=== PATIENT | female | born 1955 | race Caucasian/White ===

== ENCOUNTER → 2020-02-04 | Outpatient (CLI) | payer BC ==
--- NOTE | 2020-02-04 15:34 | US ---
EXAMINATION TYPE: US venous doppler duplex LE LT DATE OF EXAM: 02/04/2020 3:23 PM COMPARISON: NONE CLINICAL HISTORY: M79.605 Left leg pain. Left leg pain. No swelling or redness at time of study. No blood thinners. SIDE PERFORMED: Left TECHNIQUE: The lower extremity deep venous system is examined utilizing real time linear array sonog moris with graded compression, doppler sonography and color-flow sonography. VESSELS IMAGED: External Iliac Vein (EIV) Common Femoral Vein Deep Femoral Vein Greater Saphenous Vein * Femoral Vein Popliteal Vein Small Saphenous Vein * Proximal Calf Veins (* superficial vessels) Left Leg: Negative for DVT Grayscale, color doppler, spectral doppler imaging performed of the deep veins of the left lower extr emity. There is normal flow, compressibility, vascular waveforms. IMPRESSION: No ultrasound evidence for acute DVT in the left lower extremity.
== END | disposition home or self-care (01) ==
LOC: RADUSWWP 14:44
PROVIDERS: ATTEND Internal Medicine
DX: M79.605 Pain in left leg (principal)

== ENCOUNTER → 2021-01-17 | Outpatient (CLI) | payer BC ==
[2021-01-17 12:50] LABS: HCT 45.8 % (34.0-46.0); HGB 15.5 gm/dL (11.4-16.0); MCH 32.6 pg (25.0-35.0); MCHC 33.8 g/dL (31.0-37.0); MCV 96.5 fL (80.0-100.0); Mean Platelet Volume 8.6; Platelet Count 178 k/uL (150-450); RBC 4.75 m/uL (3.80-5.40); RDW 12.5 % (11.5-15.5); WBC 8.3 k/uL (3.8-10.6)
[2021-01-17 13:05] LABS: African American GFR (CKD) 77 (>60 ml/min/1.73 sqM); Anion Gap 7 mmol/L; Blood Urea Nitrogen 18 mg/dL (7-17); Calcium 9.7 mg/dL (8.4-10.2); Carbon Dioxide 31 mmol/L (22-30); Chloride 105 mmol/L (98-107); Glucose 87 mg/dL (74-99); Non-African American GFR(CKD) 67 (>60 ml/min/1.73 sqM); Potassium 4.8 mmol/L (3.5-5.1); Sodium 143 mmol/L (137-145)
[2021-01-17 13:21] LABS: T4, Free (Free Thyroxine) 1.97 ng/dL (0.78-2.19)
== END | disposition home or self-care (01) ==
LOC: LABWHC1 10:40
PROVIDERS: ATTEND Internal Medicine Interventional Cardiology
DX: I47.2 Ventricular tachycardia (principal)
CPT/HCPCS: 36415; 80048; 83735; 84439; 84443; 85027

== ENCOUNTER 2021-01-18 06:11 | Day surgery (SDC) | payer BC ==
[2021-01-17 10:53] VITALS: BMI 34.5
[~2021-01-18 06:11] MED LIST: ALPRAZolam 0.25 MG TAB PO PRN; ALPRAZolam 0.5 MG TAB PO PRN; ASPIRIN 325 MG TAB PO STA; ATORVASTATIN 80 MG TAB PO STA; NITROGLYCERIN SL TABS 0.4 MG TAB SUBLINGUAL PRN; SODIUM CHLORIDE 0.9% 1,000 ML in EMPTY BAG 1 BAG IV ONE
[2021-01-18 06:49] VITALS: RESP 16; TEMP 98.7
[2021-01-18] MEDS ORDERED: HEPARIN SODIUM,PORCINE 10,000 UNIT in SODIUM CHLORIDE 0.9% 1,000 ML IRRIGATION PRN (07:00)
[2021-01-18] MEDS ORDERED: HEPARIN SODIUM,PORCINE 2,500 UNIT in SODIUM CHLORIDE 0.9% 250 ML IRRIGATION PRN (07:00)
[2021-01-18] MEDS ORDERED: LIDOCAINE 1% INJ 10MG/ML (20 ML MDV) ONE (07:34)
[2021-01-18] MEDS ORDERED: VERAPAMIL 2.5 MG/ML 2 ML AMP ONE (07:34)
[2021-01-18] MEDS ORDERED: MIDAZOLAM 2 MG/2 ML VIAL IV ONE ×2 (07:55)
[2021-01-18] MEDS ORDERED: LIDOCAINE 1% INJ 10MG/ML (20 ML MDV) SQ ONE (07:59)
[2021-01-18] MEDS: VERAPAMIL SYRINGE (5 MG/10 ML) INTRAARTER ONE ×2 (08:05→08:14)
[2021-01-18] MEDS ORDERED: HEPARIN SODIUM 1,000 UN/ML (10ML VL) ONE (08:05)
[2021-01-18] MEDS ORDERED: HEPARIN SODIUM 1,000 UN/ML (10ML VL) IV ONE (08:07)
[2021-01-18] MEDS ORDERED: IOPAMIDOL-370 100ML BTL INJ ONE (08:14)
--- NOTE | 2021-01-18 09:25 | CC ---
CARDIAC CATHETERIZATION REPORT DATE OF SERVICE: 01/18/2021. PROCEDURE: Left heart catheterization and coronary angiography. PERFORMED BY: Dr. Luke Riojas. Moderate conscious sedation time was 17 minutes. Patient was administered Versed. Oxygen saturation, hemodynamics and EKG were monitored closely. CLINICAL INFORMATION: Mrs. Carlee Bernal is a 65-year-old lady with a history of hypertension and palpitations. Event monitor revealed runs of nonsustained VT up to 20 beats in a row, not consistently with symptoms. She was advised cardiac catheterization to rule out obstructive CAD and then she would have EP study. She also has hypothyroidism. Her laboratory data suggests that the electrolytes were normal and she is euthyroid. She currently takes metoprolol tartrate 25 mg b.i.d. and atorvastatin 20 mg daily and levothyroxine 200 mg daily. PROCEDURE NOTE: Under local anesthesia and strict aseptic precautions, a 6-Gambian introducer was placed in the right radial artery. Using a 3.5 left and 4.0 right Ian catheters I performed coronary angiography and the same right catheter was used to check LV pressure but LV gram was not performed. The sheath was taken out and TR band applied as per protocol. Saturation of the fingers of the right hand was more than 95%. CARDIAC CATHETERIZATION FINDINGS: Left ventricular end-diastolic pressure was about 10 mmHg without any gradient across aortic valve. CORONARY ANGIOGRAPHY FINDINGS: RIGHT CORONARY ARTERY: Small nondominant vessel, mild irregularities. No significant disease. LEFT MAIN CORONARY ARTERY: Short vessel, free of significant disease that trifurcates into LAD, ramus and circumflex. Left main is free of significant disease. LEFT ANTERIOR DESCENDING CORONARY ARTERY: Good caliber vessel extends along the anterior wall, gives off septal and diagonal branches, runs all the way to the apex, very tortuous, has minor irregularities. No significant disease. RAMUS INTERMEDIUS: This is a small caliber vessel that runs laterally almost looks like a high obtuse marginal, minor irregularities. No significant disease. LEFT POSTERIOR CIRCUMFLEX CORONARY ARTERY: Good caliber, good distribution vessel, gives off a large obtuse marginal and distally gives off a posterolateral branch, has minor irregularities. No significant disease noted in the circumflex system. LEFT VENTRICULOGRAM: Left ventriculogram was not performed. FINAL IMPRESSION: This patient has normal filling pressures. No gradient. Left-dominant system. Minor irregularities. No significant obstructive coronary artery disease. RECOMMENDATIONS: Findings were discussed with the patient and daughter. I am recommending that we will increase the beta jagdish to 50 mg in the morning and 25 mg in the evening. She will be seen by Dr. Almanza regarding electrophysiological studies and possible ablation of VT focus. The patient will be discharged later on today after seen by Dr. Almanza. SUZETTE / CAROLN: [id number] /
[2021-01-18 14:21] VITALS: BP 124/59; PULSE 80
--- NOTE | 2021-01-20 17:53 | P.CRDCN ---
History of Present Illness History of present illness: This is Dr. Almanza dictating a consult on this patient The patient was interviewed and examined IMPRESSION / ASSESSMENT: Recurrent palpitations paroxysms of wide complex tachycardia on event monitor, symptomatic with dizziness and palpitations V. tach versus aberrant conduction of SVT In addition, she also has PVCs on the event monitor, completely different QRS morphology Hypertension Dyslipidemia Normal coronary arteries on coronary angiography PLAN: I would recommend a diagnostic EP study to differentiate between VT versus aberrantly conducted supraventricular tachycardia Further decision regarding management will be made based upon the results of EP study Considerations include radiofrequency ablation versus use of class on Atripla drugs since she is normal coronary arteries and preserved LV systolic function This was discussed with the patient and her daughter in detail line pros and cons and risks and benefits were discussed I will schedule EP study for her. She will hold beta blockers for at least 5 days prior to the procedure HPI Patient has been experiencing palpitations for several years. She describes this as a flip-flopping and we have documented frequent PVCs on the event monitor However she is had recurrent palpitations for the last several months associated with mild dizziness The event monitor has documented a wide complex tachycardia and the morphology is quite different from the PVCs She is on low-dose beta blockers ROS: No fever chills or rigors, no cough, phlegm or expectoration, no nausea, vomiting or diarrhea, no hematuria, dysuria, no musculoskeletal complaints, no strokes or seizures, no skin lesions. EXAMINATION: 98.7F pulse rate in the 70s, blood pressure 124/59 mmHg Heart sounds S1 and S2 are normal no murmurs or gallops or rub Breath sounds are clear No rhonchi no crackles Abdomen soft REVIEW OF LABS, ECG & MEDICAL DATA Normal coronary angiogram Normal filling pressures No gradient across aortic valve Past Medical History Past Medical History: Cancer, Thyroid Disorder Additional Past Medical History / Comment(s): palpitations, SOB, received both covid vaccines, hxCA: Cervical,rare bladder CA History of Any Multi-Drug Resistant Organisms: None Reported Past Surgical History: Adenoidectomy, Joint Replacement, Tonsillectomy Additional Past Surgical History / Comment(s): part of cervix removed,partial bladder removed,bladder tumor removed,rt knee replacement Past Anesthesia/Blood Transfusion Reactions: Motion Sickness Additional Past Anesthesia/Blood Transfusion Reaction / Comment(s): unknown family hx Smoking Status: Former smoker - Past Family History Mother Family Medical History: Cancer Father Family Medical History: Coronary Artery Disease (CAD) Medications and Allergies Home Medications Medication Instructions Recorded Confirmed Type Levothyroxine Sodium [Synthroid] 200 mcg PO QAM 12/27/15 01/18/21 History Atorvastatin [Lipitor] 20 mg PO DAILY 01/17/21 01/18/21 History Metoprolol Tartrate [Lopressor] 25 mg PO BID 01/17/21 01/18/21 History Allergies Allergy/AdvReac Type Severity Reaction Status Date / Time avocado Allergy per alg Verified 01/17/21 11:28 testing cat dander Allergy Dyspnea Verified 01/17/21 10:43 hazelnut Allergy per alg Verified 01/17/21 11:28 testing latex Allergy swelling Verified 01/17/21 11:28 and redness to lips,rash strawberry Allergy per alg Verified 01/17/21 11:28 testing
== END 2021-01-18 14:35 | disposition home or self-care (01) ==
LOC: CATHCVL 06:11
PROVIDERS: ATTEND Internal Medicine Interventional Cardiology
DX: I47.2 Ventricular tachycardia (principal); I77.1 Stricture of artery; R94.39 Abnormal result of other cardiovascular function study; E03.9 Hypothyroidism, unspecified; I10 Essential (primary) hypertension; E78.5 Hyperlipidemia, unspecified; Z20.822 Contact with and (suspected) exposure to COVID-19; E78.00 Pure hypercholesterolemia, unspecified; R00.2 Palpitations; Z87.891 Personal history of nicotine dependence; Z82.49 Family history of ischemic heart disease and other diseases of the circulatory system; Z85.41 Personal history of malignant neoplasm of cervix uteri; Z85.51 Personal history of malignant neoplasm of bladder; Z90.6 Acquired absence of other parts of urinary tract; Z87.890 Personal history of sex reassignment; Z96.651 Presence of right artificial knee joint; Z79.890 Hormone replacement therapy; Z79.899 Other long term (current) drug therapy; Z91.040 Latex allergy status; Z91.018 Allergy to other foods
CPT/HCPCS: 93458; 87635; C1894; C1769; J2250; J2001; J1644; Q9967

== ENCOUNTER 2021-03-15 11:03 | Day surgery (SDC) | payer BC ==
[2021-03-11 14:29] VITALS: BMI 34.7
[~2021-03-15 11:03] MED LIST changes: -ALPRAZolam 0.25 MG TAB PO PRN; -ALPRAZolam 0.5 MG TAB PO PRN; -ASPIRIN 325 MG TAB PO STA; -ATORVASTATIN 80 MG TAB PO STA; +LACTATED RINGERS 1,000 ML IV SCH; -NITROGLYCERIN SL TABS 0.4 MG TAB SUBLINGUAL PRN; +SODIUM CHLORIDE 0.9% 1,000 ML IV SCH; -SODIUM CHLORIDE 0.9% 1,000 ML in EMPTY BAG 1 BAG IV ONE
[2021-03-15] MEDS ORDERED: SODIUM CHLORIDE 0.9% 1,000 ML IV ONE (11:18)
[2021-03-15] MEDS ORDERED: fentaNYL (PF) 50 MCG/ML 2 ML AMP ONE (13:35)
[2021-03-15] MEDS ORDERED: diphenhydrAMINE 50 MG/ML 1 ML VIAL ONE (13:35)
[2021-03-15] MEDS ORDERED: ISOPROTERENOL 250 MCG/1.25 ML SYR IV ONE (13:35)
[2021-03-15] MEDS ORDERED: MIDAZOLAM 2 MG/2 ML VIAL ONE (13:35)
[2021-03-15] MEDS ORDERED: LIDOCAINE 1% INJ 10MG/ML (20 ML MDV) SQ ONE (14:18)
[2021-03-15] MEDS ORDERED: ACETAMINOPHEN TAB 325 MG TAB PO PRN (16:22)
--- NOTE | 2021-03-15 16:44 | P.EPPROC ---
- EP Procedure Note Electrophysiology Procedure Note: Indication for Diagnostic EP study Wide complex tachycardia on the event monitor, patient complains of palpitations Details Patient was brought to the EP lab in a fasting state. Written informed consent was obtained prior to the procedure Venous sheaths were placed in the right femoral vein Diagnostic catheter placed in the high right atrium and His bundle area, RV apex, RV OT and coronary sinus Sinus cycle length 675 ms, VT interval 116 ms, QRS 93 ms and QT 395 ms AH 58 ms and HV 26 ms Sinus recovery times at 600, 504 100 ms were 1081, 1087 and 1151 ms. Corrected sinus node recovery times were normal AV node Wenckebach block 290 ms VA Wenckebach block 250 ms Atrial extra stimulation was performed after double extrastimuli from the coronary sinus and the high right atrium Burst stimulation was performed at the sites RV apical pacing was performed with excess stimulation after triple extrastimuli Burst stimulation in the RV apex With double access to lie@400\280\230 ms one episode of nonsustained ventricular tachycardia was induced This was 4 beats This could not be repeated reduced again High dose Isuprel was used No spontaneous arrhythmias CS stimulation was performed with burst stimulation and extrastimulation High right atrial pacing was performed with burst stimulation and atrial extra stimulation RV apical pacing was performed with burst stimulation and extra stimulation after triple extrastimuli RV OT pacing was performed. Burst stimulation and extrastimulation No atrial or ventricular arrhythmias induced Isuprel was stopped and in the washout period high right atrial pacing and RVOT pacing was performed No ventricular arrhythmias induced No atrial arrhythmias induced then removed and patient was transferred back to telemetry Diagnostic EP study revealing normal baseline measurements Normal sinus node function Normal AV node function A 4 beat run of nonsustained ventricular tachycardia induced at EP study, nonreproducible Plan Metoprolol to continue
[2021-03-15] MEDS ORDERED: METOPROLOL TARTRATE 25 MG TAB PO SCH (21:00)
[2021-03-16] MEDS ORDERED: LEVOTHYROXINE 100 MCG TAB PO SCH (06:30)
[2021-03-16 07:39] VITALS: BP 116/78; PULSE 79; RESP 16; TEMP 97.3
[2021-03-16] MEDS ORDERED: ATORVASTATIN 20 MG TAB PO SCH (09:00)
[2021-03-16] MEDS ORDERED: METOPROLOL TARTRATE 50 MG TAB PO SCH (09:00)
--- NOTE | 2021-03-16 10:20 | P.DS ---
Providers Attending physician: Juan Carlos Almanza Primary care physician: [facility] Course: This is a pleasant 66-year-old female who came in for an elective EP study secondary to wide complex tachycardia noted on an event monitor with patient complaints of palpitations. Diagnostic EP study revealing normal baseline measurements, normal sinus node function, normal AV node function and a 4 beat run of nonsustained V. tach induced, nonreproducible. She is seen and examined sitting up resting comfortably in bed in no acute distress. She has no symptoms of chest pain, shortness of breath, dizziness or palpitations. Blood pressure 116/78 heart rate 79 afebrile and maintaining oxygen saturation on room air. Bilateral femoral access sites soft and non-tender. GENERAL: Well-appearing, well-nourished and in no acute distress. NECK: Supple without JVD or thyromegaly. LUNGS: Breath sounds clear to auscultation bilaterally. Respiration equal and unlabored. No wheezes, rales or rhonchi. HEART: Regular rate and rhythm without murmurs, rubs or gallops. S1 and S2 heard. EXTREMITIES: Normal range of motion, no edema. No clubbing or cyanosis. Peripheral pulses intact. Femoral access sites soft, non-tender with no bleeding or ecchymosis. ASSESSMENT Palpitations status post agnostic EP study PLAN Stable for discharge on current medical regimen. Follow-up in the office with Dr. Riojas in one week. Post EP study discharge instructions provided in detail to the patient. Nurse Practitioner note has been reviewed, I agree with a documented findings and plan of care. Patient was seen and examined. Patient Condition at Discharge: Stable Plan - Discharge Summary Discharge Rx Participant: No New Discharge Prescriptions: Continue Levothyroxine Sodium [Synthroid] 200 mcg PO QAM Metoprolol Tartrate [Lopressor] 25 mg PO HS Metoprolol Tartrate [Lopressor] 50 mg PO QAM Atorvastatin [Lipitor] 20 mg PO DAILY Discharge Medication List Levothyroxine Sodium [Synthroid] 200 mcg PO QAM 12/27/15 [History] Atorvastatin [Lipitor] 20 mg PO DAILY 01/17/21 [History] Metoprolol Tartrate [Lopressor] 25 mg PO HS 01/17/21 [History] Metoprolol Tartrate [Lopressor] 50 mg PO QAM 03/11/21 [History] Follow up Appointment(s)/Referral(s): Jeff Riojas MD [STAFF PHYSICIAN] - 1 Week (office will call patient with appointment date and time) Patient Instructions/Handouts: Electrophysiology Study (DC) Activity/Diet/Wound Care/Special Instructions: Post EP study - Ablation instructions 1. Keep access sites dry for 2 days. 2. No heavy lifting or straining for 2 days. 3. Avoid bending the hips repeatedly for 2 days. 4. You may go up and down stairs slowly Call if the following is noted 1. Bleeding, increasing swelling or pain at the access sites. 2. Increasing chest discomfort, especially upon taking a deep breath. 3. Increasing shortness of breath, at rest or with exertion. 4. Undue cough / phlegm 5. Difficulty or pain while swallowing. 6. Pain or change in color in the extremities. 7. Fever, chills, rigors. 8. Increasing headache or neurologic symptoms. 9. Dizziness, fainting, palpitations Continue metoprolol Discharge Disposition: HOME SELF-CARE
== END 2021-03-16 09:44 | disposition home or self-care (01) ==
LOC: CATHEP 11:03 → 6NMEDSUR 15:50 → CATHEP 03-16 09:44
PROVIDERS: ATTEND Internal Medicine Clinical Cardiac Electrophysiology
DX: I47.1 Supraventricular tachycardia (principal); E78.5 Hyperlipidemia, unspecified; I10 Essential (primary) hypertension; J44.9 Chronic obstructive pulmonary disease, unspecified; Z87.891 Personal history of nicotine dependence; K21.9 Gastro-esophageal reflux disease without esophagitis; E07.9 Disorder of thyroid, unspecified; Z79.899 Other long term (current) drug therapy; Z91.040 Latex allergy status; Z91.018 Allergy to other foods; Z91.048 Other nonmedicinal substance allergy status
CPT/HCPCS: 93623; 93621; 93620; C1894; C1769 ×2; C1730 ×3; J2250; J1200; J2001; J3010

== ENCOUNTER → 2022-04-05 | Outpatient (CLI) | payer MEDICARE, BC ==
[2022-04-05 14:58] LABS: Basophils # (A) 0.03 X 10*3/uL (0.00-0.10); Basophils % (A) 0.4 %; Eosinophils # (A) 0.16 X 10*3/uL (0.04-0.35); Eosinophils % (A) 2.3 %; HCT 46.3 % (37.2-46.3); HGB 14.8 g/dL (12.0-15.0); Immature Grans, Automated 0.4 %; Lymphocytes # (A) 1.53 X 10*3/uL (0.90-5.00); Lymphocytes % (A) 22.2 %; MCV 97.1 fL (80.0-97.0); Mean Platelet Volume 12.1 fL (9.5-12.2); Monocytes # (A) 0.54 X 10*3/uL (0.20-1.00); Monocytes % (A) 7.8 %; NRBC Per 100 WBC 0 /100 WBCS (0.0-0.0); Neutrophils % (A) 66.9 %; Platelet Count 188 X 10*3/uL (140-440); RBC 4.77 X 10*6/uL (4.10-5.20); RDW 12.8 % (11.5-14.5); WBC 6.89 X 10*3/uL (4.50-10.00)
[2022-04-05 15:16] LABS: ALT 16 U/L (8-44); AST 22 U/L (13-35); African American GFR (CKD) 92.9 (60.0-200.0); Albumin 4.2 g/dL (3.8-4.9); Albumin/Globulin Ratio 1.51 (1.60-3.17); Alkaline Phosphatase 101 U/L (41-126); Blood Urea Nitrogen 14.3 mg/dL (9.0-27.0); Calcium 9.7 mg/dL (8.7-10.3); Carbon Dioxide 26.8 mmol/L (20.0-27.5); Chloride 107 mmol/L (96-109); Chol/HDL Ratio 2.98 Ratio; Globulin 2.8 g/dL (1.6-3.3); Glucose 92 mg/dL (70-110); LDL Cholesterol,Calculated 71.5 mg/dL (0.0-131.0); Non-African American GFR(CKD) 80.1 (60.0-200.0); Potassium 4.4 mmol/L (3.5-5.5); Sodium 146 mmol/L (135-145); VLDL Calculation 17.46 mg/dL (5.00-40.00)
--- NOTE | 2022-04-05 15:37 | US ---
EXAMINATION TYPE: US thyroid st tissue head/neck DATE OF EXAM: 04/05/2022 COMPARISON: NONE CLINICAL HISTORY: 67-year-old female L04.0 Acute lymphadenitis of face, head and neck. Patient states feeling a lump x 1 week ago. Patient does not feel lump at time of exam. TECHNIQUE: Area of concern/previous lump scanned. FINDINGS: Commis Chef notes: No abnormality visualized at time of exam. Contralateral image taken. IMPRESSION: Targeted scanning along the right side of the neck at the patient directed site of previous palpable shows no discrete abnormality. The patient reports that the lump has resolved. If there is recurrence or growth, the area can be rescanned.
== END | disposition home or self-care (01) ==
LOC: RADUSWWP 09:42
PROVIDERS: ATTEND Internal Medicine
DX: Z00.01 Encounter for general adult medical examination with abnormal findings (principal); L04.0 Acute lymphadenitis of face, head and neck; E03.9 Hypothyroidism, unspecified; E78.00 Pure hypercholesterolemia, unspecified; I10 Essential (primary) hypertension
CPT/HCPCS: 76536; 80053; 80061; 84443; 85025

== ENCOUNTER → 2023-04-30 | Outpatient (CLI) | payer MEDICARE ==
[2023-04-30 15:41] LABS: Basophils # (A) 0.04 X 10*3/uL (0.00-0.10); Basophils % (A) 0.5 %; Eosinophils # (A) 0.17 X 10*3/uL (0.04-0.35); HCT 46.3 % (37.2-46.3); HGB 15.2 d/dL (12.0-15.0); Lymphocytes # (A) 1.74 X 10*3/uL (0.90-5.00); Lymphocytes % (A) 20.3 %; MCH 31.9 pg (27.0-32.0); MCHC 32.8 d/dL (32.0-37.0); MCV 97.1 FL (80.0-97.0); Mean Platelet Volume 12.4 FL (9.5-12.2); NRBC Per 100 WBC 0 X 10*3/uL (0.00-0.01); Neutrophils # (A) 5.99 X 10*3/uL (1.80-7.70); Platelet Count 171 X 10*3/uL (140-440); RBC 4.77 X 10*6/uL (4.10-5.20); RDW 12.3 % (11.5-14.5); WBC 8.56 X 10*3/uL (4.50-10.00)
[2023-04-30 15:55] LABS: ALT 19 U/L (8-44); AST 20 U/L (13-35); Albumin 4.4 d/dL (3.8-4.9); Albumin/Globulin Ratio 1.83 Ratio (1.60-3.17); Alkaline Phosphatase 104 U/L (41-126); BUN/Creat Ratio 19.12 Ratio (12.00-20.00); Blood Urea Nitrogen 15.3 mg/dL (9.0-27.0); Calcium 9.8 mg/dL (8.7-10.3); Chloride 107 mmol/L (96-109); Chol/HDL Ratio 2.98 Ratio; Globulin 2.4 d/dL (1.6-3.3); Glucose 95 mg/dL (70-110); LDL Cholesterol,Calculated 69.5 mg/dL (0.0-131.0); Potassium 4.6 mmol/L (3.5-5.5); Sodium 145 mmol/L (135-145); T4, Free (Free Thyroxine) 2.33 ng/dL (0.80-1.80); Total Bilirubin 0.6 mg/dL (0.3-1.2); Total Protein 6.8 d/dL (6.2-8.2)
== END | disposition home or self-care (01) ==
LOC: LABWHC1 10:41
PROVIDERS: ATTEND Internal Medicine
DX: I10 Essential (primary) hypertension (principal); E03.9 Hypothyroidism, unspecified; E78.00 Pure hypercholesterolemia, unspecified
CPT/HCPCS: 36415; 80053; 80061; 84439; 84443; 84481; 85025

== ENCOUNTER 2024-07-14 08:46 | Day surgery (SDC) | payer MEDICARE ==
[2024-07-14 09:06] VITALS: TEMP 98
[2024-07-14] MEDS: LACTATED RINGERS 1,000 ML IV SCH (09:25)
[2024-07-14] MEDS: IV FLUID CONTINUATION 1,000 ML IV ONE (09:26)
[2024-07-14] MEDS ORDERED: PROPOFOL 10 MG/ML 20 ML VIAL IV ONE (09:30)
[2024-07-14 10:01] VITALS: RESP 14
[2024-07-14 10:11] VITALS: BP 122/85; PULSE 70
--- NOTE | 2024-07-14 13:06 | P.OP ---
Date of Procedure: 07/14/24 Preoperative Diagnosis: Screening Colonoscopy Postoperative Diagnosis: Diverticulosis Procedure(s) Performed: Colonoscopy Anesthesia: other (Sedation) Surgeon: Gregory Jorgensen Pathology: none sent Condition: stable Disposition: PACU Description of Procedure: After informed consent was obtained, the patient was placed in the left lateral position adequate sedation was given by anesthesia. Monitoring was provided throughout the entire procedure. Digital rectal exam was performed revealing normal sphincter tone and no external hemorrhoids. The colonoscope was inserted into rectum and advanced under direct visualization, without difficulty, to the cecum, the appendiceal orifice, and the ileocecal valve were identified. The quality of the preparation was good. The colonoscope was then withdrawn while carefully examining the mucosa. The colonic mucosa appeared normal with normal vascularity and haustral markings. No masses, polyps, or AVM/s. There were diverticula seen. On retroflexed view in the rectum, there were no internal hemorrhoids. The endoscope was removed and the procedure terminated. The patient tolerated the procedure well without complications.
== END 2024-07-14 11:01 | disposition home or self-care (01) ==
LOC: ORWHC2ENDO 08:46
PROVIDERS: ATTEND Surgery
DX: Z12.11 Encounter for screening for malignant neoplasm of colon (principal); K57.30 Diverticulosis of large intestine without perforation or abscess without bleeding; I48.91 Unspecified atrial fibrillation; I10 Essential (primary) hypertension; E78.5 Hyperlipidemia, unspecified; K21.9 Gastro-esophageal reflux disease without esophagitis; J44.9 Chronic obstructive pulmonary disease, unspecified; E03.9 Hypothyroidism, unspecified; M19.90 Unspecified osteoarthritis, unspecified site; Z85.51 Personal history of malignant neoplasm of bladder; Z87.891 Personal history of nicotine dependence; Z79.899 Other long term (current) drug therapy; Z98.890 Other specified postprocedural states
CPT/HCPCS: J2704; G0121